=== PATIENT | male | born 1960 | race African-American/Black ===

== ENCOUNTER 2019-12-25 12:17 | Inpatient (IN) | payer MEDICAID ==
[~2019-12-25] VITALS: Ht 185.4 cm; Wt 93.0 kg
[~2019-12-25 12:17] MED LIST: ASPIRIN325 PO; AUGMENTIN 875875 MG PO; BACTRIM DS TAB1 EACH PO; JANUMET 50-1,01 EACH PO; KEFLEX500 MG PO; LANTUS100 UNIT/M SUBQ; LIPITOR 20 MG T20 M1 PO; METFORMIN HCL500 MG PO; MIRALAX17 GM PO; NEURONTIN 300300 M1 PO; NORCO 5-325 TA1 EACH PO; NOVOLOG100 UNIT/1 SUBQ; PLAVIX 75 MG TA75 M1 PO; TRAMADOL 50 MG50 MG PO
[2019-12-25 12:23] VITALS: BP 92/58
[2019-12-25 13:05] LABS: HEMATOCRIT 28.7 % (42.0-52.0); HEMOGLOBIN 9.2 gm/dL (14.0-18.0); MCH 24.8 pg (26.0-34.0); MCV 77.5 fL (80.0-100.0); MPV 6.3 fl. (7.2-11.1); NUCLEATED RBCS 0 /100WBC; PLATELET COUNT* 653 thou/uL (150-400); RBC 3.71 mil/uL (4.50-6.00); RDW-CV 13.9 % (10.5-14.5)
[2019-12-25 13:13] LABS: CALCIUM 8.5 mg/dL (8.5-10.1); CREATININE 1.9 mg/dL (0.6-1.3); POTASSIUM 4.4 mmol/L (3.5-5.1)
[2019-12-25 13:14] LABS: APTT 38.6 Seconds (25.0-31.3); INR 1.3
[2019-12-25 13:18] LABS: TOTAL BILIRUBIN 0.4 mg/dL (<0.1-1.0); TOTAL PROTEIN 7.7 g/dL (6.4-8.2)
[2019-12-25 14:40] LABS: ABSOLUTE EOSINOPHILS 0.2 thou/uL (0.0-0.7); ABSOLUTE LYMPHOCYTES 0.8 thou/uL (0.8-5.3); ABSOLUTE MONOCYTES 1.3 thou/uL (0.0-1.2); ABSOLUTE NEUTROPHILS 16.7 thou/uL (1.6-8.1)
[2019-12-25 14:43] LABS: PLATELET ESTIMATE INCREASED; TOXIC GRANULATION 1+
[2019-12-25 17:14] VITALS: BP 112/55
--- NOTE | 2019-12-26 10:58 | EKG ---
[place] [address] ELECTROCARDIOGRAM REPORT Name: KEVIN BAKER Room: [place] [address] ADM IN ..#: [id number] Admission: 12/25/19 Attend Phys: Regino Chu, Discharge: Date of : 56 Date of Service: 12/25/19 1302 Report #: [id number] THIS REPORT FOR: //name// [facility] ED Test Date: 2019-12-25 Test Time: 13:02:57 Pat Name: KEVIN BAKER Department: Room: [facility] Gender: M Unindentured Apprentice: ADDIS : 1960 Requested By: Neyda Casarez Order Number: [id number] MD: Jose Garcia Measurements Intervals T[place] Rate: 106 P: 70 PA: 146 QRS: -3 QRSD: 89 T: 12 QT: 354 QTc: 471 Interpretive Statements Sinus tachycardia Probable left atrial enlargement Borderline T wave abnormalities Compared to ECG 03/04/2016 08:39:49 Sinus rate has increased T-wave abnormality still present Electronically Signed On 12-26-2019 10:58:37 CDT by Jose Garcia [email or web address] <ELECTRONICALLY SIGNED> By: Jose Garcia MD, [facility] 12/26/19 1058 1302 1302 Jose Garcia MD, [facility] /EPI
== END 2019-12-25 17:20 | disposition short-term general hospital (02) | DRG 638 ==
LOC: M.ERS 12:17 → M.TBA-ER 14:07
PROVIDERS: Nurse Practitioner Family; ADMIT Internal Medicine; ATTEND Internal Medicine
DX: E11.69 Type 2 diabetes mellitus with other specified complication (principal); M86.8X7 Other osteomyelitis, ankle and foot; E11.51 Type 2 diabetes mellitus with diabetic peripheral angiopathy without gangrene; Z89.512 Acquired absence of left leg below knee; Z79.01 Long term (current) use of anticoagulants; Z79.82 Long term (current) use of aspirin; Z79.899 Other long term (current) drug therapy; Z79.84 Long term (current) use of oral hypoglycemic drugs